=== PATIENT | female | born 1980 | race Caucasian/White ===

== ENCOUNTER 2022-01-24 15:54 | Emergency (ER) | payer BC, MEDICARE ==
[2022-01-24 16:10] VITALS: BP 110/78; PULSE 85; RESP 20; TEMP 98.1
--- NOTE | 2022-01-24 16:37 | ED ---
Lower Extremity Injury HPI - General Chief Complaint: Extremity Injury, Lower Stated Complaint: fell and hurt L foot Time Seen by Provider: 01/24/22 16:14 Source: patient Mode of arrival: ambulatory Limitations: no limitations - History of Present Illness Initial Comments: Patient is a 41-year-old female who presents with left foot pain. Patient states she was reading while laying in bed when both of her feet fell asleep. When she went to stand up discharge her legs that she accidentally kicked the bedpost. Patient endorses pain over the top outer region of her left foot. States her pain is mild at rest however when bearing weight pain increases. Denies numbness and tingling. - Related Data Allergies Allergy/AdvReac Type Severity Reaction Status Date / Time Sulfa (Sulfonamide AdvReac Rash/Hives Verified 01/24/22 16:10 Antibiotics) Review of Systems ROS Statement: Those systems with pertinent positive or pertinent negative responses have been documented in the HPI. ROS Other: All systems not noted in ROS Statement are negative. Past Medical History Past Medical History: Hypertension Past Psychological History: Anxiety Smoking Status: Never smoker Past Alcohol Use History: None Reported Past Drug Use History: None Reported General Exam Limitations: no limitations General appearance: alert, in no apparent distress Head exam: Present: atraumatic, normocephalic, normal inspection Respiratory exam: Present: normal lung sounds bilaterally. Absent: respiratory distress, wheezes, rales, rhonchi, stridor Cardiovascular Exam: Present: regular rate, normal rhythm, normal heart sounds. Absent: systolic murmur, diastolic murmur, rubs, gallop, clicks Left Ankle exam: Present: normal inspection, full ROM. Absent: tenderness, swelling Foot/Toe exam: Present: normal inspection, full ROM, tenderness (base of fifth metatarsal). Absent: swelling Neurovascular tendon exam: Present: no vascular compromise Neurological exam: Present: alert, oriented X3, CN II-XII intact Psychiatric exam: Present: normal affect, normal mood Course Vital Signs 01/24/22 16:02 Temperature 98.1 F Pulse Rate 85 Respiratory 20 Rate Blood Pressure 110/78 O2 Sat by Pulse 98 Oximetry Procedures - Orthopedic Splinting/Casting Injury #1 Lower Extremity Immobilizer: posterior splint Other Orthopedic Equipment: crutches Medical Decision Making - Medical Decision Making This is a 41-year-old female who presents with left foot pain. Thorough history and examination were performed. Patient has tenderness the base of the fifth metatarsal without overlying erythema, swelling, or ecchymosis. Neurovascularly intact Patient declines pain medication. X-ray shows a hairline fracture involving the base of the fifth metatarsal. Results discussed with patient. Patient placed in posterior ankle splint. Neurovascularly intact on reevaluation. Patient follow-up with environmental management specialist. Fracture care discussed in detail. Crutches provided. Patient is nonweightbearing until orthopedic evaluation. Dr. Meneses is my attending. Disposition Clinical Impression: Injury of left foot, Left foot pain, Mckeon fracture Disposition: HOME SELF-CARE Condition: Good Instructions (If sedation given, give patient instructions): Foot Fracture in Adults (ED) Additional Instructions: You have a hairline fracture at the base of the fifth metatarsal. Please keep splint clean and dry. Rest, ice, and elevate the foot as much as possible. Use crutches and do not bear weight until orthopedic evaluation. Schedule appointment with environmental management specialist in the morning. Take Tylenol or Motrin for any pain. Return to the emergency department if you experience new, concerning, or worsening symptoms. Is patient prescribed a controlled substance at d/c from ED?: No Referrals: Kavon Myers III, MD [Primary Care Provider] - 1-2 days Bethanie Becerra NPC [Nurse Practitioner] - 1-2 days Time of Disposition: 17:33
--- NOTE | 2022-01-24 16:49 | XR ---
EXAMINATION TYPE: XR foot complete LT DATE OF EXAM: 01/24/2022 4:41 PM INDICATION: Patient age:Female; 41 years old; Reason for study: fall; [facility]. COMPARISON: None TECHNIQUE: The left foot was examined in the AP, oblique, and lateral projections. FINDINGS: At least 2 hairline fractures are suspected through the fifth metatarsal base without displacement. T here is associated soft tissue edema near diffuse linear lucencies. No additional fractures identifie d. IMPRESSION: Hairline fracture suggested involving the base of the fifth metatarsal. This can be confirmed with CT if clinically warranted.
[2022-01-24] MEDS ORDERED: ACET/COD 300 MG/30 MG STARTER PACK 6 TAB BTL PO STA (18:00)
== END 2022-01-24 18:50 | disposition home or self-care (01) ==
LOC: EC 15:54
DX: S92.902A Unspecified fracture of left foot, initial encounter for closed fracture (principal); I10 Essential (primary) hypertension; Z88.2 Allergy status to sulfonamides; W22.03XA Walked into furniture, initial encounter
CPT/HCPCS: 29515; 99283